=== PATIENT | male | born 1985 | race Caucasian/White ===

== ENCOUNTER 2018-12-12 13:27 | Emergency (ER) | payer MEDICAID ==
[2018-12-12 17:13] LABS: ADD MAN DIFF? NO
[2018-12-12 17:14] LABS: MODE ROOM AIR; MetHgb Venous 0.3 %; Sample Type Blood venous; Site VENOUS LINE; Venous COHb 2.6 %; Venous Fraction OxyHgb 86.6 %; Venous Oxygen Sat 89.2 mmHG (55.0-75.0); Venous Total Hemglobin 11.3 g/dl
[2018-12-12 17:17] LABS: BASOPHIL # 0.1 10^3/ul (0.0-0.1); BASOPHILS % 0.7 % (0.0-2.0); EOSINOPHILS # 0.1 10^3/ul (0.0-0.5); EOSINOPHILS % 1.3 % (0.0-7.0); HEMOGLOBIN 9.9 g/dl (14.0-18.0); LYMPHOCYTES % 14.3 % (15.0-51.0); MEAN CORPUSCULAR HEMOGLOBIN 26.5 pg (29.0-33.0); MEAN CORPUSCULAR VOLUME 80.2 fl (82.0-101.0); MEAN PLATELET VOLUME 9.5 fl (7.4-10.4); MONOCYTE # 0.4 10^3/ul (0.3-0.9); MONOCYTES % 5.5 % (0.0-11.0); NEUTROPHIL # 5.4 10^3/ul (1.6-7.5); NEUTROPHILS % 77.9 % (39.0-77.0); PLATELET COUNT 484 10^3/UL (140-415); RED BLOOD COUNT 3.74 10^6/ul (4.70-6.10); RED CELL DISTRIBUTION WIDTH 20.3 % (11.5-14.5)
[2018-12-12 17:21] LABS: ADD UMIC NO; UR ASCORBIC ACID NEGATIVE (NEGATIVE); UR BILIRUBIN (Dip) NEGATIVE (NEGATIVE); UR BLOOD (Dip) NEGATIVE (NEGATIVE); UR CLARITY CLEAR (CLEAR); UR COLOR STRAW (YELLOW); UR GLUCOSE (Dip) 3+ mg/dL (NEGATIVE); UR KETONES (Dip) NEGATIVE (NEGATIVE); UR LEUKOCYTE ESTERASE (Dip) NEGATIVE Leu/ul (NEGATIVE); UR NITRITE (Dip) NEGATIVE (NEGATIVE); UR SPECIFIC GRAVITY (Dip) 1.025 (1.003-1.030); UR TOTAL PROTEIN (Dip) NEGATIVE (NEGATIVE); UR UROBILINOGEN (Dip) NEGATIVE (NEGATIVE)
[2018-12-12] MEDS: SOD CHLORIDE 0.9% 900 ML IV (17:34)
[2018-12-12 17:38] LABS: ANION GAP 10 (5-13); BLOOD UREA NITROGEN 12 mg/dl (7-20); CALCIUM 9.5 mg/dl (8.4-10.2); CARBON DIOXIDE 25 mmol/L (21-31); CHLORIDE 98 mmol/L (97-110); CREATININE 0.47 mg/dl (0.61-1.24); Estimated GFR > 60 mL/min (>60); MAGNESIUM 1.9 mg/dl (1.7-2.5); PHOSPHORUS 3.7 mg/dl (2.5-4.9); POTASSIUM 4.5 mmol/L (3.5-5.1); SODIUM 133 mmol/L (135-144)
[2018-12-12 17:41] LABS: GLUCOSE 443 mg/dl (70-220)
[2018-12-12] MEDS: ONDANSETRON 4 MG INJ IV (18:00)
[2018-12-12] MEDS: morphine 4 MG/ML VIAL IV (18:00)
[2018-12-12] MEDS: DIPHENHYDRAMINE 50 MG INJ IV (18:10)
[2018-12-12] MEDS: INSULIN LISPRO 100 UNIT/ML VIAL SC (18:38)
== END 2018-12-12 19:39 | disposition home or self-care (01) ==
LOC: E/R 13:27
DX: E10.65 Type 1 diabetes mellitus with hyperglycemia (principal); R10.84 Generalized abdominal pain; F17.210 Nicotine dependence, cigarettes, uncomplicated; Z79.4 Long term (current) use of insulin
CPT/HCPCS: 36415; 80048; 81003; 82803; 82962; 83735; 84100; 85025; 96372; 96374; 96375; 99284-25

== ENCOUNTER 2018-12-20 18:24 | Emergency (ER) | payer MEDICAID ==
[2018-12-20 19:30] LABS: ADD MAN DIFF? NO
[2018-12-20 19:33] LABS: BASOPHIL # 0.1 10^3/ul (0.0-0.1); BASOPHILS % 0.6 % (0.0-2.0); EOSINOPHILS # 0.1 10^3/ul (0.0-0.5); HEMATOCRIT 28.9 % (42.0-52.0); HEMOGLOBIN 9.4 g/dl (14.0-18.0); LYMPHOCYTES # 0.9 10^3/ul (0.8-2.9); LYMPHOCYTES % 9.4 % (15.0-51.0); MEAN CORPUSCULAR HEMOGLOBIN 26.3 pg (29.0-33.0); MEAN CORPUSCULAR HGB CONC 32.5 g/dl (32.0-37.0); MEAN CORPUSCULAR VOLUME 80.7 fl (82.0-101.0); MONOCYTE # 0.5 10^3/ul (0.3-0.9); MONOCYTES % 5.5 % (0.0-11.0); NEUTROPHIL # 8.1 10^3/ul (1.6-7.5); NEUTROPHILS % 83.1 % (39.0-77.0); PLATELET COUNT 457 10^3/UL (140-415); RED BLOOD COUNT 3.58 10^6/ul (4.70-6.10)
[2018-12-20 19:33] LABS: WHITE BLOOD COUNT 9.8 10^3/ul (4.8-10.8)
[2018-12-20] MEDS: SOD CHLORIDE 0.9% 1,000 ML IV ×2 (19:33→22:00)
[2018-12-20] MEDS: HYDROmorphONE 1 MG/ML SYG IV ×2 (19:33→22:18)
[2018-12-20] MEDS: ONDANSETRON 4 MG INJ IV ×2 (19:33→22:18)
[2018-12-20 19:51] LABS: ALANINE AMINOTRANSFERASE 25 IU/L (13-69); ALBUMIN 3.8 g/dl (3.3-4.9); ALBUMIN/GLOBULIN RATIO 1.02; ALKALINE PHOSPHATASE 105 IU/L (42-121); ANION GAP 7 (5-13); ASPARTATE AMINO TRANSFERASE 28 IU/L (15-46); BLOOD UREA NITROGEN 20 mg/dl (7-20); CALCIUM 9.3 mg/dl (8.4-10.2); CARBON DIOXIDE 28 mmol/L (21-31); CHLORIDE 101 mmol/L (97-110); CREATININE 0.54 mg/dl (0.61-1.24); Estimated GFR > 60 mL/min (>60); LIPASE 23 U/L (23-300); POTASSIUM 4.4 mmol/L (3.5-5.1); SODIUM 136 mmol/L (135-144); TOTAL PROTEIN 7.5 g/dl (6.1-8.1)
[2018-12-20 20:26] LABS: GLUCOSE 404 mg/dl (70-220)
[2018-12-20] MEDS: INSULIN LISPRO 100 UNIT/ML VIAL SC (21:08)
[2018-12-20] MEDS: SOD CHLORIDE 0.9% 100 ML (21:37)
[2018-12-20] MEDS: IOHEXOL 300MG/ML 150 ML BTL (21:37)
== END 2018-12-20 22:50 | disposition home or self-care (01) ==
LOC: E/R 18:24
DX: K86.1 Other chronic pancreatitis (principal); F17.210 Nicotine dependence, cigarettes, uncomplicated; E10.9 Type 1 diabetes mellitus without complications; Z79.4 Long term (current) use of insulin
CPT/HCPCS: 36415; 74177; 80053; 82962; 83690; 85025; 93005; 96361; 96372; 96374; 96375; 96376; 99285-25

== ENCOUNTER 2018-12-30 02:59 | Emergency (ER) | payer MEDICAID | END 2018-12-30 07:00 | disposition home or self-care (01) | LOC: E/R 02:59 | DX: R10.13 Epigastric pain (principal); E11.9 Type 2 diabetes mellitus without complications; R11.0 Nausea; Z87.891 Personal history of nicotine dependence; Z79.4 Long term (current) use of insulin | CPT/HCPCS: 99283; Z7502 ==